=== PATIENT | female | born 1980 | race Caucasian/White ===

== ENCOUNTER 2017-05-30 18:55 | Inpatient (IN) | payer SELFPAY ==
[2017-05-30] MEDS: Lactated Ringers 1,000 ML 50 ML IV (19:10)
[2017-05-30] MEDS: Oxytocin 30 units/NS 500 ml 30 UNITS/500 ML IV.SOLN 167 UNITS IV (19:27)
[2017-05-30 19:51] LABS: Hematocrit 37.3 % (37-47); Hemoglobin 12.4 g/dl (12.0-15.0); Mean Corp Hgb Conc 33.2 g/gl (32-36); Mean Corpuscular Hgb 28.6 pg (27.0-32.0); Mean Corpuscular Volume 85.9 fL (81-99); Mean Platelet Vol. 10.8 fl (6.2-12.0); Platelet Count 165 K/mm3 (150-450); RBC Distribution Width CV 14.5 % (11.6-14.6); RBC Distribution Width SD 44.5 fl (35.1-43.9); Red Blood Count 4.34 M/mm3 (4.2-5.4); White Blood Count 8.4 K/mm3 (4.4-11.0)
[2017-05-30 19:53] LABS: Prothrombin Time (Protime)PT. 12.3 SECONDS (11.7-14.9)
[2017-05-30 19:56] LABS: Scan Indicated on CBC? Y/N NO
[2017-05-30] MEDS: Oxytocin 30 units/NS 500 ml 30 UNITS/500 ML IV.SOLN 334 UNITS IV (19:57)
[2017-05-30 20:02] LABS: Fibrinogen 494 mg/dl (203-444)
[2017-05-30 20:07] VITALS: BMI 22.3
--- NOTE | 2017-05-30 20:30 | PCM.HP.OB ---
(1) Active labor at term Status: Acute (2) Vaginal bleeding during , antepartum Status: Acute History Date of Admission: 05/30/17 Gestational age: 38.1 History of this : 36 yo @ 39 weeks presents IAL presented from home from the care of a overlay operator in the community who was supporting her labor at home and she developed increased vaginal bleeding and so she recommend deliveyr here for suspected abruption Pertinent Past Medical History: PMH: negative PSH: negative : rh negative OB hisotry 5 previous term Allergies No Known Allergies Allergy (Verified 05/30/17 19:15) Current Medications Acetaminophen (Tylenol) 325 - 650 mg PO Q4H PRN PRN PRN Reason: PAIN OR FEVER >100.4F Al Hydroxide/Mg Hydroxide (Mylanta Ii) 15 - 30 ml PO Q4H PRN PRN PRN Reason: INDIGESTION Citric Acid/Sodium Citrate (Bicitra) 30 ml PO UD PRN Lactated Ringer's () 1,000 mls @ 50 mls/hr IV .Q20H [facility] Last Admin: 05/30/17 19:10 Dose: 50 mls/hr Nalbuphine HCl (Nubain) 5 - 10 mg IV Q3H PRN PRN PRN Reason: PAIN (4-10/10) Ondansetron HCl (Zofran) 4 mg IV Q8H PRN PRN PRN Reason: NAUSEA Promethazine HCl (Phenergan (Ll)) 6.25 - 12.5 mg IV Q4H PRN PRN; Protocol PRN Reason: IF NAUSEA PERSISTS Sodium Chloride () 5 - 15 ml IV UD [facility] Smoking Status: Never smoker Alcohol: None Drug Use: none Number of Fetus(es): 1 - fht 150s moderate variability reactive no decels cat I tracing Review of Systems Constitutional: Denies: Chills, Fever, Weight Change HEENT: Denies: Head Aches, Sinus Congestion, Sinus Drainage Cardiovascular: Denies: Chest Pain, Palpitations Respiratory: Denies: Cough, Shortness of breath at rest, Sputum production Gastrointestinal: Reports: Abdominal Pain. Denies: Nausea, Vomiting Genitourinary: Denies: Dysuria Gynecological: Reports: Vaginal bleeding Musculoskeletal: Denies: Joint Pain, Joint Tenderness Skin: Denies: Rash, Wounds Neurological: Denies: Numbness, Tingling, Focal weakness Psychiatric: Denies: Anxiety, Depression, Homicidal Ideations, Suicidal Ideations Hematologic/ Lymphatic: Denies: Easy Bruising, Easy Bleeding Physical Exam General: Alert, Oriented x3, No apparent distress Cardiovascular: Regular rate Lungs: Normal air movement Abdomen: Soft, Gravid Extremities:: No edema Estimated gestational size: Small for gestational age Presentation: Cephalic Cervix Dilation (cm): 6 - meconium fluid Station: -1 Effacement (%): 80 Assessment/Plan Active and Suspected Problems Active labor at term (Acute) Vaginal bleeding during , antepartum (Acute) arom meconium fluid vaginal bleeding- abruption labs drawn care by overlay operator in the community- panel drawn
--- NOTE | 2017-05-30 20:35 | HP.PCM_ITS ---
(1) Active labor at term Status: Acute (2) Vaginal bleeding during , antepartum Status: Acute History Date of Admission: 05/30/17 Gestational age: 38.1 History of this : 36 yo @ 39 weeks presents IAL presented from home from the care of a machine lay out worker in the community who was supporting her labor at home and she developed increased vaginal bleeding and so she recommend deliveyr here for suspected abruption Pertinent Past Medical History: PMH: negative PSH: negative : rh negative OB hisotry 5 previous term Allergies No Known Allergies Allergy (Verified 05/30/17 19:15) Current Medications Acetaminophen (Tylenol) 325 - 650 mg PO Q4H PRN PRN PRN Reason: PAIN OR FEVER >100.4F Al Hydroxide/Mg Hydroxide (Mylanta Ii) 15 - 30 ml PO Q4H PRN PRN PRN Reason: INDIGESTION Citric Acid/Sodium Citrate (Bicitra) 30 ml PO UD PRN Lactated Ringer's () 1,000 mls @ 50 mls/hr IV .Q20H [facility] Last Admin: 05/30/17 19:10 Dose: 50 mls/hr Nalbuphine HCl (Nubain) 5 - 10 mg IV Q3H PRN PRN PRN Reason: PAIN (4-10/10) Ondansetron HCl (Zofran) 4 mg IV Q8H PRN PRN PRN Reason: NAUSEA Promethazine HCl (Phenergan (Ll)) 6.25 - 12.5 mg IV Q4H PRN PRN; Protocol PRN Reason: IF NAUSEA PERSISTS Sodium Chloride () 5 - 15 ml IV UD [facility] Smoking Status: Never smoker Alcohol: None Drug Use: none Number of Fetus(es): 1 - fht 150s moderate variability reactive no decels cat I tracing Review of Systems Constitutional: Denies: Chills, Fever, Weight Change HEENT: Denies: Head Aches, Sinus Congestion, Sinus Drainage Cardiovascular: Denies: Chest Pain, Palpitations Respiratory: Denies: Cough, Shortness of breath at rest, Sputum production Gastrointestinal: Reports: Abdominal Pain. Denies: Nausea, Vomiting Genitourinary: Denies: Dysuria Gynecological: Reports: Vaginal bleeding Musculoskeletal: Denies: Joint Pain, Joint Tenderness Skin: Denies: Rash, Wounds Neurological: Denies: Numbness, Tingling, Focal weakness Psychiatric: Denies: Anxiety, Depression, Homicidal Ideations, Suicidal Ideations Hematologic/ Lymphatic: Denies: Easy Bruising, Easy Bleeding Physical Exam General: Alert, Oriented x3, No apparent distress Cardiovascular: Regular rate Lungs: Normal air movement Abdomen: Soft, Gravid Extremities:: No edema Estimated gestational size: Small for gestational age Presentation: Cephalic Cervix Dilation (cm): 6 - meconium fluid Station: -1 Effacement (%): 80 Assessment/Plan Active and Suspected Problems Active labor at term (Acute) Vaginal bleeding during , antepartum (Acute) arom meconium fluid vaginal bleeding- abruption labs drawn care by machine lay out worker in the community- panel drawn
--- NOTE | 2017-05-30 20:36 | PCM.OB.VAG ---
(1) Active labor at term Status: Acute (2) Vaginal bleeding during , antepartum Status: Acute (3) Normal vaginal delivery Status: Acute (4) Placenta abruption, delivered, current hospitalization Status: Acute Vaginal Delivery Maternal Presentation: Active Labor Medical Reason for Induction: Abruption Amniotic Membrane Rupture Type: Artificial Amniotic Fluid Description: Moderate meconium Final HAILEY: 06/07/17 Gestational age: 38 Weeks and 6 Days Date of Procedure: 05/30/17 Pre-Operative Diagnosis: 36-year-old in active labor vaginal bleeding Post-Operative Diagnosis: Same plus abruption Surgery/ Procedure Performed: Spontaneous Vaginal Delivery Type of Anesthesia: Local with 1% lidocaine Description of Procedure: Patient began pushing and delivered the head in the KELLY presentation. The head was delivered atraumatically and a loose nuchal cord ?1 was identified and easily reduced over the infant's head. The anterior and posterior shoulders delivered without complication followed by the rest of the infant and the infant was placed on the maternal abdomen. Delayed cord clamping was employed for approximately 60 seconds. Cord was clamped and cut and gentle traction was applied to the cord and the placenta delivered spontaneously immediately following it was noted to be intact with three-vessel cord. The perineum and vagina were inspected and noted to have a small second-degree perineal laceration that was repaired in the usual fashion with 3-0 Vicryl repeat after injecting with 1% lidocaine. EBL was 350 cc. Patient and tolerated delivery well. Presentation: KELLY Placental Delivery Description: Spontaneous Placenta Disposition: [facility] Cord Entanglement: Around neck x 1, loose Estimated Blood Loss: 350 Infant A gender: Female Episiotomy Description: None Laceration: Perineal Extension/lac, 2nd degree Medications given after delivery: IV Pitocin Complications: None
--- NOTE | 2017-05-30 20:42 | PCM.DCVAG ---
Discharge Diet: No Restrictions Discharge Activity: Return to Normal Activity, May not drive while taking narcotic pain medications., May Shower May resume sexual activity in: 4-6 weeks Additional Activity Instructions:: Nothing in the vagina for 4-6 weeks. You may return to work/school in 6 weeks. Call your doctor if your incision/area has: Continuous Slow Oozing, Sudden Increased Bleeding, Increased Pain/ Swelling, Increased Redness, Foul Smelling Discharge Additional Instructions: If you experience any of the following, contact your healthcare provider. Bleeding that soaks a pad every hour for 2 hours Fever 100.4 or higher Unrelieved incision or abdominal pain Swelling, redness, discharge or bleeding from your incision or episiotomy site Your incision begins to separate Problems urinating (including inability to urinate or burning while urinating). Visual changes Severe headache Flu-like symptoms Pain or redness in one of both of your breasts Pain, warmth, tenderness or swelling in your legs, especially the calf area Frequent nausea and vomiting Symptoms of depression or anxiety If you experience any of the following, call 911 or go to the nearest Emergency Room. Chest pain Problems breathing Seizure activity Partial or complete paralysis of a body part, slurred speech, weakness or drooping of the face, or a sudden inability to walk or hold your balance Allergies/Adverse Reactions: Allergies No Known Allergies Allergy (Verified 05/30/17 19:15) Please Follow Up With: Molly Peck MD - [phone] When: Call to make an appointment with your doctor in 6 weeks. If you had elevated Blood Pressure or 4th degree laceration you will need to be seen in 2 weeks. Proposed Discharge Date: 05/31/17
--- NOTE | 2017-05-30 20:44 | DCINST_ITS ---
Discharge Diet: No Restrictions Discharge Activity: Return to Normal Activity, May not drive while taking narcotic pain medications., May Shower May resume sexual activity in: 4-6 weeks Additional Activity Instructions:: Nothing in the vagina for 4-6 weeks. You may return to work/school in 6 weeks. Call your doctor if your incision/area has: Continuous Slow Oozing, Sudden Increased Bleeding, Increased Pain/ Swelling, Increased Redness, Foul Smelling Discharge Additional Instructions: If you experience any of the following, contact your healthcare provider. * Bleeding that soaks a pad every hour for 2 hours * Fever 100.4 or higher * Unrelieved incision or abdominal pain * Swelling, redness, discharge or bleeding from your incision or episiotomy site * Your incision begins to separate * Problems urinating (including inability to urinate or burning while urinating) . * Visual changes * Severe headache * Flu-like symptoms * Pain or redness in one of both of your breasts * Pain, warmth, tenderness or swelling in your legs, especially the calf area * Frequent nausea and vomiting * Symptoms of depression or anxiety If you experience any of the following, call 911 or go to the nearest Emergency Room. * Chest pain * Problems breathing * Seizure activity * Partial or complete paralysis of a body part, slurred speech, weakness or drooping of the face, or a sudden inability to walk or hold your balance Allergies/Adverse Reactions: Allergies No Known Allergies Allergy (Verified 05/30/17 19:15) Please Follow Up With: Molly Peck MD - [phone] When: Call to make an appointment with your doctor in 6 weeks. If you had elevated Blood Pressure or 4th degree laceration you will need to be seen in 2 weeks. Proposed Discharge Date: 05/31/17
[2017-05-31 01:59] VITALS: BP 126/69; PULSE 57; RESP 18; TEMP 36.8
[2017-05-31] MEDS: Acetaminophen 500 MG Tablet 1000 MG PO (04:05)
[2017-05-31 05:45] VITALS: BP 116/66; PULSE 66; RESP 18; TEMP 36.8
--- NOTE | 2017-05-31 05:56 | NURSING ---
certificate complete aside from the infants name , patient/chely holt binder and wrapper packer will call unit sunday with the infants name, all other information obtained
== END 2017-05-31 05:45 | disposition home or self-care (01) | DRG 774 ==
PROVIDERS: Admitting Provider Obstetrics & Gynecology; Visit Provider Obstetrics & Gynecology
DX: O45.93 Premature separation of placenta, unspecified, third trimester (principal); O36.5930 Maternal care for other known or suspected poor fetal growth, third trimester, not applicable or unspecified; Z37.0 Single live birth; O69.81X0 Labor and delivery complicated by cord around neck, without compression, not applicable or unspecified; Z3A.39 39 weeks gestation of pregnancy; O70.1 Second degree perineal laceration during delivery
CPT/HCPCS: 59025; 59050; 85027; 85384; 85461; 85610; 85730; 86850; 86900; 90384; 99218; J7120; G0378; J2790